=== PATIENT | male | born 1955 | race Caucasian/White ===

== ENCOUNTER 2021-05-01 17:34 | Emergency (ER) | payer OTHER ==
[2021-05-01 18:27] VITALS: RESP 18
--- NOTE | 2021-05-01 19:16 | XR ---
Result: History: Pain. Comparison: Pain status post fall. Technique: 3 views of the left knee. Findings: No acute fracture or dislocation is seen. The visualized osseous structures are in anatomic alignmen t. 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 There is small knee joint effusion. Impression: Small knee joint effusion without acute osseous abnormality.
[2021-05-01 19:35] VITALS: BP 150/85; PULSE 95; TEMP 98
[2021-05-01] MEDS ORDERED: KETOROLAC 15 MG/ML 1 ML VIAL IM STA (19:35)
[2021-05-01] MEDS ORDERED: ACETAMINOPHEN TAB 500 MG TAB PO STA (19:35)
--- NOTE | 2021-05-01 19:38 | ED ---
Lower Extremity Injury HPI - General Source: patient, family Mode of arrival: wheelchair Limitations: physical limitation <CarlNicholas - Last Filed: 05/01/21 19:50> <Pauline Prieto - Last Filed: 05/02/21 00:33> - General Chief Complaint: Extremity Injury, Lower Stated Complaint: Fall, knee injury Time Seen by Provider: 05/01/21 19:02 - History of Present Illness Initial Comments: This is a pleasant 65-year-old male who presents to the emergency department complaining of left knee pain. Patient states he slipped on ice and his foot went behind him and he fell backwards twisting his left knee. He is complaining of pain to the anterior medial aspect of the left knee with no other complaints. There is no head or neck injury. Patient had a blood thinners. Patient denies any chest pain or shortness of breath. No abdominal pain. No nausea or vomiting. No numbness or tingling. Patient is able to ambulate without antalgia. Pain does not radiate. It alleviated by rest. Exacerbated by palpation and ambulation. (Nicholas Henry) - Related Data Previous Rx's Medication Instructions Recorded Ibuprofen [Motrin] 600 mg PO Q8HR PRN #30 tab 05/01/21 Allergies Allergy/AdvReac Type Severity Reaction Status Date / Time No Known Allergies Allergy Verified 05/01/21 19:33 Review of Systems ROS Other: All systems not noted in ROS Statement are negative. <CarlNicholas - Last Filed: 05/01/21 19:50> ROS Other: All systems not noted in ROS Statement are negative. <Pauline Prieto - Last Filed: 05/02/21 00:33> ROS Statement: Those systems with pertinent positive or pertinent negative responses have been documented in the HPI. Past Medical History Past Medical History: No Reported History History of Any Multi-Drug Resistant Organisms: None Reported Past Surgical History: No Surgical Hx Reported Past Psychological History: No Psychological Hx Reported Smoking Status: Never smoker Past Alcohol Use History: None Reported Past Drug Use History: None Reported <CarlNicholas - Last Filed: 05/01/21 19:50> General Exam Limitations: no limitations, physical limitation General appearance: alert, in no apparent distress Head exam: Present: atraumatic, normocephalic, normal inspection Eye exam: Present: normal appearance, EOMI ENT exam: Present: normal exam Neck exam: Present: normal inspection. Absent: tenderness, meningismus, lymphadenopathy Respiratory exam: Present: normal lung sounds bilaterally. Absent: respiratory distress, wheezes, rales, rhonchi, stridor Cardiovascular Exam: Present: regular rate, normal rhythm, normal heart sounds. Absent: systolic murmur, diastolic murmur, rubs, gallop, clicks GI/Abdominal exam: Present: soft. Absent: tenderness Extremities exam: Present: tenderness, normal capillary refill, joint swelling, other (Patient has edema noted to the left knee. No break in skin integrity. No bony pathology. Ligament are stable as tested with anterior posterior drawer, varus and valgus stress, and Brittany's test. No discernible Sue's test. Distal sensation intact. Pedal pulses 2+ out of 4. Capillary refi). Absent: full ROM, pedal edema, calf tenderness Back exam: Present: normal inspection, full ROM. Absent: tenderness Neurological exam: Present: alert, oriented X3, CN II-XII intact Psychiatric exam: Present: normal affect, normal mood Skin exam: Present: warm, dry, intact, normal color. Absent: rash <Nicholas Henry - Last Filed: 05/01/21 19:50> Course Vital Signs 05/01/21 18:24 Temperature 98 F Pulse Rate 95 Respiratory 18 Rate Blood Pressure 150/85 O2 Sat by Pulse 97 Oximetry Medical Decision Making <Nicholas Henry - Last Filed: 05/01/21 19:50> <Pauline Prieto - Last Filed: 05/02/21 00:33> - Medical Decision Making Patient presents with isolated injury to left knee. Consistent with left knee sprain. No evidence of fracture on x-ray. Discussed the possibility of occult fracture. Discussed possibility of internal derangement. Patient will be placed in a knee immobilizer and given follow-up with orthopedics. We'll treat with anti-inflammatory medication. Patient has no history of liver or kidney problems. Estratest or bleeding. Patient given follow-up with Dr. Sierra. Patient also has crutches if he does not tolerate a knee immobilizer. Vision given Toradol and acetaminophen here prior to discharge. Discussed rice therapy. Patient was told to return to the ER for any signs or symptoms worsen. Told to return immediately if any other problems arise. All questions answered. Treatment plan discussed. Patient in agreement (Nicholas Henry) I was available for consultation in the emergency department. The history and physical exam were done by the midlevel provider. I was consulted for this patients care. I reviewed the case with the midlevel provider and based on their presentation of the patient, I agree with the assessment, medical decision making and plan of care as documented. (Pauline Prieto) Disposition Is patient prescribed a controlled substance at d/c from ED?: No <CarlNicholas - Last Filed: 05/01/21 19:50> <Pauline Prieto - Last Filed: 05/02/21 00:33> Clinical Impression: Left knee sprain Disposition: HOME SELF-CARE Condition: Stable Instructions (If sedation given, give patient instructions): Knee Sprain (ED), Knee Immobilizer (ED) Additional Instructions: Call for follow-up appointment with the orthopedic physician as discussed. Return to the ER immediately if any symptoms worsen, new symptoms arise, or any other problems develop. Use a knee immobilizer or crutches until follow-up with the orthopedic physician. Prescriptions: Ibuprofen [Motrin] 600 mg PO Q8HR PRN #30 tab PRN Reason: Pain Referrals: Genaro Sierra MD [STAFF PHYSICIAN] - 05/05/21
== END 2021-05-01 20:42 | disposition home or self-care (01) ==
LOC: EC 17:34
DX: S83.92XA Sprain of unspecified site of left knee, initial encounter (principal); W01.0XXA Fall on same level from slipping, tripping and stumbling without subsequent striking against object, initial encounter; X50.1XXA Overexertion from prolonged static or awkward postures, initial encounter
CPT/HCPCS: 73562; 99284; 96372; L1830; J1885

== ENCOUNTER 2021-10-03 11:02 | Inpatient (IN) | payer OTHER ==
--- NOTE | 2021-10-03 11:40 | ED ---
General Adult HPI - General Chief complaint: Chest Pain Stated complaint: Chest pain Time Seen by Provider: 10/03/21 11:12 Source: patient, EMS Mode of arrival: EMS Limitations: no limitations - History of Present Illness Initial comments: Dictation was produced using [employer] dictation software. please excuse any grammatical, word or spelling errors. Chief Complaint: 65-year-old male presents with chest pain and back pain History of Present Illness: To a 5-year-old male who states that at approximately 8 AM he was feeding the cows and shoveling when all of a sudden he began to experiencing a dull chest pain. Patient states pain radiated to his back. After several hours he decided come to the emergency room. States he does not notice any pain in his chest and only his back. Patient denies any medical problems. Patient has no tobacco history. Patient states that now he has a dull ache in his thoracic back. Patient complains of associated shortness of breath. No associated diaphoresis. He states it is not the worst pain in his life. He states that his pain came on insidiously. Does complain of some mild paresthesias to his left arm however he believes that secondary to the blood pressure cuff on his left upper extremity. He has a history of blood clot. Several weeks ago they took a road trip to the [facility]. Patient has no lower extremity symptoms. The ROS documented in this emergency department record has been reviewed and confirmed by me. Those systems with pertinent positive or negative responses have been documented in the HPI. All other systems are other negative and/or noncontributory. PHYSICAL EXAM: General Impression: Alert and oriented x3, not in acute distress HEENT: Normocephalic atraumatic, extra-ocular movements intact, pupils equal and reactive to light bilaterally, mucous membranes moist. Cardiovascular: Heart regular rate and rhythm Chest: Able to complete full sentences, no retractions, no tachypnea, lungs clear to auscultation Abdomen: abdomen soft, non-tender, non-distended, no organomegaly Musculoskeletal: Pulses present and equal in all extremities, no peripheral edema Motor: no focal deficits noted Neurological: CN II-XII grossly intact, no focal motor or sensory deficits noted Skin: Intact with no visualized rashes Psych: Normal affect and mood ED course: 65-year-old male presents to the emergency department for atypical chest pain w typical features. Vital signs upon arrival are within acceptable limits. EKG does not show any signs of ischemia or infarction. EKG interpretation: Ventricular rate 54, sinus bradycardia,. 183, QS 90, QTC 42 6. No SC prolongation, no QTC prolongation, no ST or T-wave changes noted. No old EKG for comparison Overall, this EKG is unremarkable Repeat EKG performed several minutes later shows no dynamic changes. Patient observed in the emergency department for approximately 3 hours. Reevaluated at bedside at 2:30 PM states that his pain is significantly improved. Patient I bedside appears to be well appearing and a symptomatically. Laboratory evaluation shows normal CBC, normal coag panel. D-dimer 0.29. Metabolic panel is negative. Troponin is 0.131. There was concern of aortic di ssection given that patient had back pain. Thoracic aorta CT shows no evidence of dissection but there is an aneurysm. Patient given aspirin 7 heparin for elevated troponin. Patient will be admitted to [facility] with consultation to cardiology. - Related Data Home Medications Medication Instructions Recorded Confirmed Omeprazole [PriLOSEC] 20 mg PO DAILY 10/03/21 10/03/21 Allergies Allergy/AdvReac Type Severity Reaction Status Date / Time No Known Allergies Allergy Verified 10/03/21 12:05 Review of Systems ROS Statement: Those systems with pertinent positive or pertinent negative responses have been documented in the HPI. ROS Other: All systems not noted in ROS Statement are negative. Past Medical History Past Medical History: GERD/Reflux History of Any Multi-Drug Resistant Organisms: None Reported Past Surgical History: No Surgical Hx Reported Past Psychological History: No Psychological Hx Reported Smoking Status: Never smoker Past Alcohol Use History: Occasional Past Drug Use History: None Reported General Exam Limitations: no limitations Course Vital Signs 10/03/21 10/03/21 10/03/21 11:04 12:11 13:01 Temperature 97.6 F Pulse Rate 54 L 70 75 Respiratory 18 18 18 Rate Blood Pressure 144/93 105/50 140/84 O2 Sat by Pulse 97 97 96 Oximetry Medical Decision Making - Lab Data Result diagrams: 10/03/21 11:40 10/03/21 11:40 Lab Results 10/03/21 10/03/21 10/03/21 Range/Units 11:40 11:40 11:40 WBC 6.3 (3.8-10.6) k/uL RBC 4.88 (4.30-5.90) m/uL Hgb 15.2 (13.0-17.5) gm/dL Hct 45.9 (39.0-53.0) % MCV 94.0 (80.0-100.0) fL MCH 31.1 (25.0-35.0) pg MCHC 33.1 (31.0-37.0) g/dL RDW 13.8 (11.5-15.5) % Plt Count 228 (150-450) k/uL MPV 7.7 Neutrophils % 51 % Lymphocytes % 34 % Monocytes % 7 % Eosinophils % 5 % Basophils % 1 % Neutrophils # 3.2 (1.3-7.7) k/uL Lymphocytes # 2.1 (1.0-4.8) k/uL Monocytes # 0.4 (0-1.0) k/uL Eosinophils # 0.3 (0-0.7) k/uL Basophils # 0.0 (0-0.2) k/uL PT 10.7 (9.0-12.0) sec INR 1.0 (<1.2) APTT 25.0 (22.0-30.0) sec D-Dimer 0.29 (<0.60) mg/L FEU Sodium 136 L (137-145) mmol/L Potassium 4.3 (3.5-5.1) mmol/L Chloride 105 (98-107) mmol/L Carbon Dioxide 24 (22-30) mmol/L Anion Gap 7 mmol/L BUN 21 H (9-20) mg/dL Creatinine 0.86 (0.66-1.25) mg/dL Est GFR (CKD-EPI)AfAm >90 (>60 ml/min/1.73 sqM) Est GFR (CKD-EPI)NonAf >90 (>60 ml/min/1.73 sqM) Glucose 132 H (74-99) mg/dL Calcium 8.9 (8.4-10.2) mg/dL Magnesium 2.2 (1.6-2.3) mg/dL Total Bilirubin 0.7 (0.2-1.3) mg/dL AST 33 (17-59) U/L ALT 24 (4-49) U/L Alkaline Phosphatase 79 (38-126) U/L Troponin I (0.000-0.034) ng/mL NT-Pro-B Natriuret Pep pg/mL Total Protein 7.0 (6.3-8.2) g/dL Albumin 4.0 (3.5-5.0) g/dL 10/03/21 10/03/21 Range/Units 11:40 11:40 WBC (3.8-10.6) k/uL RBC (4.30-5.90) m/uL Hgb (13.0-17.5) gm/dL Hct (39.0-53.0) % MCV (80.0-100.0) fL MCH (25.0-35.0) pg MCHC (31.0-37.0) g/dL RDW (11.5-15.5) % Plt Count (150-450) k/uL MPV Neutrophils % % Lymphocytes % % Monocytes % % Eosinophils % % Basophils % % Neutrophils # (1.3-7.7) k/uL Lymphocytes # (1.0-4.8) k/uL Monocytes # (0-1.0) k/uL Eosinophils # (0-0.7) k/uL Basophils # (0-0.2) k/uL PT (9.0-12.0) sec INR (<1.2) APTT (22.0-30.0) sec D-Dimer (<0.60) mg/L FEU Sodium (137-145) mmol/L Potassium (3.5-5.1) mmol/L Chloride (98-107) mmol/L Carbon Dioxide (22-30) mmol/L Anion Gap mmol/L BUN (9-20) mg/dL Creatinine (0.66-1.25) mg/dL Est GFR (CKD-EPI)AfAm (>60 ml/min/1.73 sqM) Est GFR (CKD-EPI)NonAf (>60 ml/min/1.73 sqM) Glucose (74-99) mg/dL Calcium (8.4-10.2) mg/dL Magnesium (1.6-2.3) mg/dL Total Bilirubin (0.2-1.3) mg/dL AST (17-59) U/L ALT (4-49) U/L Alkaline Phosphatase (38-126) U/L Troponin I 0.131 H* (0.000-0.034) ng/mL NT-Pro-B Natriuret Pep 81 pg/mL Total Protein (6.3-8.2) g/dL Albumin (3.5-5.0) g/dL Critical Care Time Critical Care Time: Yes Total Critical Care Time: 33 Disposition Clinical Impression: ACS (acute coronary syndrome) Disposition: ADMITTED IP TO THIS [facility] Condition: Serious Referrals: Shaylee Watkins MD [Primary Care Provider] - 1-2 days Decision Time: 14:27
[2021-10-03 11:56] LABS: Basophils % (A) 1 %; Eosinophils # (A) 0.3 k/uL (0-0.7); Eosinophils % (A) 5 %; HCT 45.9 % (39.0-53.0); HGB 15.2 gm/dL (13.0-17.5); Lymphocytes # (A) 2.1 k/uL (1.0-4.8); Lymphocytes % (A) 34 %; MCH 31.1 pg (25.0-35.0); MCHC 33.1 g/dL (31.0-37.0); Mean Platelet Volume 7.7; Monocytes # (A) 0.4 k/uL (0-1.0); Monocytes % (A) 7 %; Neutrophils # (A) 3.2 k/uL (1.3-7.7); Neutrophils % (A) 51 %; Platelet Count 228 k/uL (150-450); RBC 4.88 m/uL (4.30-5.90); RDW 13.8 % (11.5-15.5); WBC 6.3 k/uL (3.8-10.6)
[2021-10-03 12:12] LABS: Prothrombin Time 10.7 sec (9.0-12.0)
--- NOTE | 2021-10-03 12:13 | XR ---
EXAMINATION TYPE: XR chest 1V portable DATE OF EXAM: 10/03/2021 COMPARISON: 07/30/2021 INDICATION: TECHNIQUE: Single frontal view of the chest is obtained. FINDINGS: The heart size is normal. The pulmonary vasculature is normal. The lungs are clear. IMPRESSION: 1. No acute pulmonary process.
[2021-10-03 12:30] LABS: ALT 24 U/L (4-49); AST 33 U/L (17-59); African American GFR (CKD) >90 (>60 ml/min/1.73 sqM); Alkaline Phosphatase 79 U/L (38-126); Anion Gap 7 mmol/L; Blood Urea Nitrogen 21 mg/dL (9-20); Calcium 8.9 mg/dL (8.4-10.2); Carbon Dioxide 24 mmol/L (22-30); Chloride 105 mmol/L (98-107); Glucose 132 mg/dL (74-99); Magnesium 2.2 mg/dL (1.6-2.3); Non-African American GFR(CKD) >90 (>60 ml/min/1.73 sqM); Potassium 4.3 mmol/L (3.5-5.1); Sodium 136 mmol/L (137-145); Total Bilirubin 0.7 mg/dL (0.2-1.3)
--- NOTE | 2021-10-03 14:19 | CT ---
CTA of the chest abdomen and pelvis. HISTORY: Suspected aortic dissection. Chest pain. COMPARISON: None. TECHNIQUE: Multiple axial images were obtained through the chest, abdomen and pelvis following uneven tful administration of nonionic IV contrast material. Exam was performed according to CTA protocol. 3 -D postprocessing was performed. Coronal and sagittal reconstructions were generated and reviewed. The ascending thoracic aorta is diffusely aneurysmal measuring 4.6 cm in greatest dimension but there is no evidence of a dissection. There is no aneurysm of the descending thoracic aorta or abdominal a mark and no evidence of dissection. There is no retroperitoneal adenopathy or hemorrhage. The origins of the mesenteric arteries are widely patent as are the renal artery origins. The kidneys are perfused symmetrically and promptly and there is no solid renal mass or hydronephrosis. The bowel loops are normal in caliber and there is no evidence of obstruction. No inflammatory change s are identified in the mesentery or bowel wall. There is no free intraperitoneal air or fluid. The gallbladder is normal. The liver, pancreas, spleen and adrenal glands are normal without gross enlargement or focal abnormal ity. There is no pelvic mass or adenopathy. The osseous structures are intact. There is a 7 mm nodule in the right upper lobe anteriorly. A 6 mm densely calcified nodule associated with the right major fissure and 4.4 mm nodule associated with the left major fissure. . IMPRESSION: 1. No evidence of aortic dissection. There is aneurysmal dilatation of the ascending thoracic aorta a s described above. Renal artery origins and mesenteric artery origins are normal is no abnormality of the bowel or kidneys. 2. Pulmonary nodules as described above. Follow-up CT chest is recommended in 4-6 months.
[2021-10-03] MEDS ORDERED: NITROGLYCERIN SL TABS 0.4 MG TAB SUBLINGUAL PRN (14:23)
[2021-10-03] MEDS ORDERED: HEPARIN SODIUM 1,000 UN/ML (10ML VL) IV ONE (14:23)
[2021-10-03] MEDS ORDERED: ASPIRIN 81 MG PO STA (14:23)
[2021-10-03] MEDS ORDERED: HEPARIN SOD,PORK IN 0.45% NACL 25,000 UNIT in 0.45% NACL 1 250ML.BAG IV SCH (14:30)
--- NOTE | 2021-10-03 18:07 | P.HPIM ---
History of Present Illness H&P Date: 10/03/21 Chief Complaint: Chest pain 65-year-old male who states that at approximately 8 AM he was feeding the cows and shoveling when all of a sudden he began to experiencing a dull chest pain. Patient states pain radiated to his back. After several hours he decided come to the emergency room. States he does not notice any pain in his chest and only his back. Patient denies any medical problems. Patient has no tobacco history. Patient states that now he has a dull ache in his thoracic back. Patient complains of associated shortness of breath. No associated diaphoresis. He states it is not the worst pain in his life. He states that his pain came on insidiously. Does complain of some mild paresthesias to his left arm however he believes that secondary to the blood pressure cuff on his left upper extremity. He has a history of blood clot. Several weeks ago they took a road trip to the [facility]. Patient has no lower extremity symptoms. Patient observed in the emergency department for approximately 3 hours. Reevaluated at bedside at 2:30 PM states that his pain is significantly improved. Patient I bedside appears to be well appearing and a symptomatically. Laboratory evaluation shows normal CBC, normal coag panel. D-dimer 0.29. Metabolic panel is negative. Troponin is 0.131. There was concern of aortic dissection given that patient had back pain. Thoracic aorta CT shows no evidence of dissection but there is an aneurysm. Patient given aspirin 7 heparin for elevated troponin. Patient will be admitted to [facility] with consultation to cardiology. Review of Systems REVIEW OF SYSTEMS: CONSTITUTIONAL: No fever, no malaise, no fatigue. HEENT: No recent visual problems or hearing problems. Denied any sore throat. CARDIOVASCULAR: No chest pain, orthopnea, PND, no palpitations, no syncope. PULMONARY: No shortness of breath, no cough, no hemoptysis. GASTROINTESTINAL: No diarrhea, no nausea, no vomiting, no abdominal pain. NEUROLOGICAL: No headaches, no weakness, no numbness. HEMATOLOGICAL: Denies any bleeding or petechiae. GENITOURINARY: Denies any burning micturition, frequency, or urgency. MUSCULOSKELETAL/RHEUMATOLOGICAL: Denies any joint pain, swelling, or any muscle pain. ENDOCRINE: Denies any polyuria or polydipsia. The rest of the 14-point review of systems is negative. Past Medical History Past Medical History: GERD/Reflux History of Any Multi-Drug Resistant Organisms: None Reported Past Surgical History: No Surgical Hx Reported Past Psychological History: No Psychological Hx Reported Smoking Status: Never smoker Past Alcohol Use History: Occasional Past Drug Use History: None Reported Medications and Allergies Home Medications Medication Instructions Recorded Confirmed Type Omeprazole [PriLOSEC] 20 mg PO DAILY 10/03/21 10/03/21 History Allergies Allergy/AdvReac Type Severity Reaction Status Date / Time No Known Allergies Allergy Verified 10/03/21 12:05 Physical Exam Vitals: Vital Signs Temp Pulse Resp BP Pulse Ox 10/03/21 13:01 75 18 140/84 96 10/03/21 12:11 70 18 105/50 97 10/03/21 11:04 97.6 F 54 L 18 144/93 97 Intake and Output 10/02/21 10/03/21 10/03/21 22:59 06:59 14:59 Other: Weight 86.183 kg General Impression: Alert and oriented x3, not in acute distress HEENT: Normocephalic atraumatic, extra-ocular movements intact, pupils equal and reactive to light bilaterally, mucous membranes moist. Cardiovascular: Heart regular rate and rhythm Chest: Able to complete full sentences, no retractions, no tachypnea, lungs clear to auscultation Abdomen: abdomen soft, non-tender, non-distended, no organomegaly Musculoskeletal: Pulses present and equal in all extremities, no peripheral edema Motor: no focal deficits noted Neurological: CN II-XII grossly intact, no focal motor or sensory deficits noted Skin: Intact with no visualized rashes Psych: Normal affect and mood Results CBC & Chem 7: 10/03/21 11:40 10/03/21 11:40 Labs: Abnormal Lab Results - Last 24 Hours (Table) 10/03/21 10/03/21 Range/Units 11:40 11:40 Sodium 136 L (137-145) mmol/L BUN 21 H (9-20) mg/dL Glucose 132 H (74-99) mg/dL Troponin I 0.131 H* (0.000-0.034) ng/mL Assessment and Plan Assessment: 1. Chest pain/NSTEMI - Troponin is elevated at 0.131; we will admit patient to telemetry and monitor EKG and trend troponin; patient will be placed on IV heparin per protocol; consult cardiology for further recommendations 2. Mild renal injury; BUN is elevated at 21; patient is encouraged to increase oral fluid intake; diagnosed, daily weights, renal function and electrolytes 3. Gastroesophageal reflux disease; continue with PPI according to her home do neris DVT prophylaxis; SCDs/IV heparin CODE STATUS; full code
[2021-10-03] MEDS: NITROGLYCERIN OINT 1 INCH/GM PACKET TOPICAL SCH ×2 (18:40→23:43)
[2021-10-03] MEDS: ATORVASTATIN 40 MG TAB PO SCH (18:40)
[2021-10-03] MEDS: METOPROLOL TARTRATE 25 MG TAB PO SCH (21:30)
[2021-10-04] MEDS: PANTOPRAZOLE 40 MG TABLET PO SCH (06:34)
[2021-10-04] MEDS ORDERED: ATORVASTATIN 80 MG TAB PO STA (07:57)
[2021-10-04] MEDS ORDERED: ALPRAZolam 0.25 MG TAB PO PRN (07:57)
[2021-10-04] MEDS ORDERED: ASPIRIN 325 MG TAB PO STA (07:57)
[2021-10-04] MEDS ORDERED: ALPRAZolam 0.5 MG TAB PO PRN (07:57)
[2021-10-04] MEDS ORDERED: NITROGLYCERIN SL TABS 0.4 MG TAB SUBLINGUAL PRN ×2 (07:57→11:48)
[2021-10-04] MEDS ORDERED: ASPIRIN 325 MG TAB PO SCH (09:00)
[2021-10-04] MEDS: NITROGLYCERIN OINT 1 INCH/GM PACKET TOPICAL SCH (09:15)
[2021-10-04] MEDS: ATORVASTATIN 40 MG TAB PO SCH (09:15)
[2021-10-04] MEDS: ASPIRIN 81 MG PO SCH (09:15)
[2021-10-04] MEDS ORDERED: fentaNYL (PF) 50 MCG/ML 2 ML AMP ONE (10:01)
[2021-10-04] MEDS ORDERED: VERAPAMIL 2.5 MG/ML 2 ML AMP ONE (10:01)
[2021-10-04] MEDS ORDERED: HEPARIN SODIUM 1,000 UN/ML (10ML VL) ONE (10:01)
[2021-10-04] MEDS ORDERED: IV FLUID CONTINUATION 900 ML IV ONE (10:22)
[2021-10-04] MEDS ORDERED: LIDOCAINE 1% PF 10 MG/ML (5 ML AMP) SQ ONE (10:38)
[2021-10-04] MEDS ORDERED: VERAPAMIL SYRINGE (5 MG/10 ML) INTRAARTER ONE (10:40)
[2021-10-04] MEDS ORDERED: fentaNYL (PF) 50 MCG/ML 2 ML AMP IV ONE (10:40)
[2021-10-04] MEDS: HEPARIN SODIUM 1,000 UN/ML (10ML VL) IV ONE ×3 (10:46→11:50)
[2021-10-04] MEDS ORDERED: PRASUGREL 10 MG TAB ONE (10:57)
[2021-10-04] MEDS ORDERED: PRASUGREL 10 MG TAB PO ONE (10:59)
[2021-10-04] MEDS ORDERED: IOPAMIDOL-370 125ML BTL INJ ONE (11:00)
--- NOTE | 2021-10-04 11:00 | CA ---
Transthoracic Echo Report Name: Damir Munguia Age: 65 Gender: M : 1955 Exam Date: 10/04/2021 07:51 Exam Location: [facility] Ht (in): 68 Wt (lb): 184 Ordering Physician: Sriram Nguyen MD ([id number]) Attending/Referring Phys: Health [employer] Fabiola Mccormick RDCS Procedure CPT: Indications: TN Cardiac Hx: Technical Quality: Good Contrast 1: Total Dose (mL): Contrast 2: Total Dose (mL): MEASUREMENTS (Male / Female) Normal Values 2D ECHO LV Diastolic Diameter PLAX 3.7 cm 4.2 - 5.9 / 3.9 - 5.3 cm LV Systolic Diameter PLAX 2.3 cm IVS Diastolic Thickness 1.3 cm 0.6 - 1.0 / 0.6 - 0.9 cm LVPW Diastolic Thickness 1.2 cm 0.6 - 1.0 / 0.6 - 0.9 cm LV Relative Wall Thickness 0.7 RV Internal Dim ED PLAX 3.5 cm LA Systolic Diameter LX 3.0 cm 3.0 - 4.0 / 2.7 - 3.8 cm LA Volume 48.3 cm??? 18 - 58 / 22 - 52 cm??? M-MODE Aortic Root Diameter MM 3.9 cm MV E Point Septal Separation 0.5 cm AV Cusp Separation MM 2.5 cm DOPPLER AV Peak Velocity 92.2 cm/s AV Peak Gradient 3.4 mmHg MV Area PHT 2.3 cm??? Mitral E Point Velocity 58.2 cm/s Mitral A Point Velocity 88.2 cm/s Mitral E to A Ratio 0.7 MV Deceleration Time 328.1 ms TR Peak Velocity 215.5 cm/s TR Peak Gradient 18.6 mmHg Right Ventricular Systolic Press 23.6 mmHg FINDINGS Left Ventricle Left ventricular ejection fraction is estimated at 55-60 %. Left ventricular cavity size normal. Mild concentric left ventricular hypertrophy. Right Ventricle Mild right ventricular dilatation. Right ventricular systolic pressure within normal limits. Right Atrium Normal right atrial size. Left Atrium Normal left atrial size. No evidence for an atrial septal defect. Mitral Valve Structurally normal mitral valve. No mitral stenosis, regurgitation or prolapse. Aortic Valve Trileaflet aortic valve. Mild aortic regurgitation. Tricuspid Valve Mild tricuspid regurgitation. Pulmonic Valve Trace pulmonic regurgitation. Pericardium Normal pericardium. No pericardial effusion. Aorta Mild aortic dilatation at the level of the sinuses of valsalva (root). CONCLUSIONS Normal LV size and systolic function Previewed by: Dr. Castillo Moe MD (Electronically Signed) Final Date: 04 October 2021 10:59
[2021-10-04] MEDS: METOPROLOL TARTRATE 25 MG TAB PO SCH ×2 (11:01→21:01)
--- NOTE | 2021-10-04 11:07 | P.CRDCN ---
History of Present Illness Consult date: 10/04/21 Consult reason: non-Q-wave LA History of present illness: The patient is a 65-year-old male with past medical history of borderline hypertension, who presented to the hospital with new onset of chest discomfort. 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 He states once EMS arrived and he was given nitroglycerin the pain did improve. He states he does have a family history of coronary artery disease as his brother had a heart attack around the age of 50. DIAGNOSTICS: EKG shows sinus mechanism without any ST or T-wave abnormalities Chest x-ray shows no acute cardiopulmonary disease. Computed tomography scan of the chest shows no evidence of aortic dissection. 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 Lab data: WBC 6.3, hemoglobin 15.2, hematocrit 45.9, platelet 228, d-dimer 0.29, sodium 136, potassium 4.3, BUN 21, creatinine 0.86, AST 33, ALT 24, proBNP 81, troponin 0.13, 14.7, 19.5 Echocardiogram reveals normal LV function with mild LVH PAST MEDICAL HISTORY: Acid reflux, borderline hypertension, family history of CAD REVIEW OF SYSTEMS: No fever or chills. No cough or expectoration. No diaphoresis. Patient denies headache, dizziness, blurred vision, double vision. Patient denies any stomach discomfort. No nausea, vomiting. No hematochezia. No hematemesis. Denies any black stools or blood in his stools. Denies dysuria or hematuria. No muscle weakness or numbness. No current chest pain. No current shortness of breath. No palpitations. PHYSICAL EXAMINATION: This is a 65-year-old male in no apparent distress at the time of my examination. HEENT: Head is atraumatic, normocephalic. Pupils are equal, round. Sclerae anicteric. Conjunctivae are clear. Mucous membranes of the mouth are moist. Neck is supple. There is no jugular venous distention. No carotid bruit is heard. CHEST EXAMINATION: Lungs are clear to auscultation. No chest wall tenderness is noted on palpation or with deep breathing. HEART EXAMINATION: Heart regular rate and rhythm. S1, S2 heard. No murmurs, gallops or rub. ABDOMEN: Soft, nontender. Bowel sounds are heard. No organomegaly noted. EXTREMITIES: 2+ peripheral pulses with no evidence of peripheral edema and no calf tenderness noted. NEUROLOGIC EXAMINATION: Patient is awake, alert and oriented x3. FINAL ASSESSMENT AND PLAN: Non-ST elevated myocardial infarction, troponin elevation consistent with acute LA Family history of coronary artery disease Nonsmoker Borderline hypertension PLAN: Discussed coronary angiogram in detail with both the patient and his . Plan for later on this morning to assess for coronary artery disease. Continue aspirin and statin Further recommendations. Based on clinical course I am dictating on behalf of Dr Castillo Moe's history/physical and assessment/plan. Past Medical History Past Medical History: GERD/Reflux History of Any Multi-Drug Resistant Organisms: None Reported Past Surgical History: No Surgical Hx Reported Past Psychological History: No Psychological Hx Reported Smoking Status: Never smoker Past Alcohol Use History: Occasional Past Drug Use History: None Reported - Past Family History Brother(s) Family Medical History: Myocardial Infarction (LA) Additional Family Medical History / Comment(s): in 40's Father Family Medical History: Coronary Artery Disease (CAD) Additional Family Medical History / Comment(s): cABG in 70's Medications and Allergies Home Medications Medication Instructions Recorded Confirmed Type Omeprazole [PriLOSEC] 20 mg PO DAILY 10/03/21 10/03/21 History Allergies Allergy/AdvReac Type Severity Reaction Status Date / Time No Known Allergies Allergy Verified 10/03/21 12:05 Physical Exam Vitals: Vital Signs Temp Pulse Pulse Resp BP BP BP 10/04/21 04:00 98.2 F 61 18 109/67 10/04/21 02:00 86 18 10/04/21 00:00 97.9 F 86 18 131/74 10/03/21 20:00 67 16 10/03/21 19:55 97.9 F 67 16 155/89 10/03/21 16:00 97.4 F L 65 15 151/88 10/03/21 15:18 98.3 F 63 18 171/100 10/03/21 15:00 60 16 151/99 10/03/21 13:01 75 18 140/84 10/03/21 12:11 70 18 105/50 10/03/21 11:04 97.6 F 54 L 18 144/93 Pulse Ox 10/04/21 04:00 95 10/04/21 02:00 10/04/21 00:00 95 10/03/21 20:00 10/03/21 19:55 97 10/03/21 16:00 98 10/03/21 15:18 98 10/03/21 15:00 99 10/03/21 13:01 96 10/03/21 12:11 97 10/03/21 11:04 97 Intake and Output 10/03/21 10/04/21 10/04/21 22:59 06:59 14:59 Other: Voiding Method Toilet Toilet Urinal Urinal # Voids 2 0 Weight 86.183 kg 83.6 kg Results 10/03/21 11:40 10/03/21 11:40 Cardiac Enzymes 10/03/21 10/03/21 10/03/21 Range/Units 11:40 11:40 16:10 AST 33 (17-59) U/L Troponin I 0.131 H* 14.700 H* (0.000-0.034) ng/mL 10/03/21 Range/Units 19:33 AST (17-59) U/L Troponin I 19.500 H* (0.000-0.034) ng/mL Coagulation 10/03/21 10/03/21 Range/Units 11:40 21:26 PT 10.7 (9.0-12.0) sec APTT 25.0 49.4 H (22.0-30.0) sec CBC 10/03/21 Range/Units 11:40 WBC 6.3 (3.8-10.6) k/uL RBC 4.88 (4.30-5.90) m/uL Hgb 15.2 (13.0-17.5) gm/dL Hct 45.9 (39.0-53.0) % Plt Count 228 (150-450) k/uL Comprehensive Metabolic Panel 10/03/21 Range/Units 11:40 Sodium 136 L (137-145) mmol/L Potassium 4.3 (3.5-5.1) mmol/L Chloride 105 (98-107) mmol/L Carbon Dioxide 24 (22-30) mmol/L BUN 21 H (9-20) mg/dL Creatinine 0.86 (0.66-1.25) mg/dL Glucose 132 H (74-99) mg/dL Calcium 8.9 (8.4-10.2) mg/dL AST 33 (17-59) U/L ALT 24 (4-49) U/L Alkaline Phosphatase 79 (38-126) U/L Total Protein 7.0 (6.3-8.2) g/dL Albumin 4.0 (3.5-5.0) g/dL Current Medications Generic Name Dose Route Start Last Admin Trade Name Freq PRN Reason Stop Dose Admin Aspirin 81 mg 10/04/21 09:00 Aspirin 81 Mg PO DAILY [facility] Atorvastatin Calcium 40 mg 10/03/21 18:30 10/03/21 18:40 Atorvastatin 40 Mg Tab PO 40 mg DAILY [facility] Administration Heparin Sodium/Sodium Chloride 250 mls @ 10 mls/hr 10/03/21 14:30 10/03/21 14:47 25,000 unit/ Sodium Chloride IV 11.603 units/kg/hr .Q24H MARYANN 10 mls/hr Administration Protocol 11.603 UNITS/KG/HR Metoprolol Tartrate 25 mg 10/03/21 21:00 10/03/21 21:30 Metoprolol Tartrate 25 Mg Tab PO 25 mg BID [facility] Administration Nitroglycerin 0.4 mg 10/03/21 14:23 Nitroglycerin Sl Tabs 0.4 Mg Tab SUBLINGUAL Q5M PRN Chest Pain Nitroglycerin 1 inch 10/03/21 18:30 10/03/21 23:43 Nitroglycerin Oint 1 Inch/Gm Packet TOPICAL 1 inch Q8HR [facility] Administration Pantoprazole Sodium 40 mg 10/04/21 07:30 10/04/21 06:34 Pantoprazole 40 Mg Tablet PO 40 mg [id number] [facility] Administration Intake and Output 10/03/21 10/04/21 10/04/21 22:59 06:59 14:59 Other: Voiding Method Toilet Toilet Urinal Urinal # Voids 2 0 Weight 86.183 kg 83.6 kg 10/03/21 11:40 10/03/21 11:40
[2021-10-04 11:10] LABS: African American GFR (CKD) >90 (>60 ml/min/1.73 sqM); Anion Gap 8 mmol/L; Blood Urea Nitrogen 14 mg/dL (9-20); Calcium 8.6 mg/dL (8.4-10.2); Carbon Dioxide 27 mmol/L (22-30); Chloride 102 mmol/L (98-107); Glucose 107 mg/dL (74-99); Non-African American GFR(CKD) >90 (>60 ml/min/1.73 sqM); Potassium 4.9 mmol/L (3.5-5.1); Sodium 137 mmol/L (137-145)
[2021-10-04] MEDS ORDERED: NITROGLYCERIN 1000MCG/10ML SYRINGE INTRACORON ONE (11:11)
[2021-10-04] MEDS ORDERED: IOPAMIDOL-370 100ML BTL INJ ONE ×2 (11:27→11:44)
[2021-10-04] MEDS ORDERED: MIDAZOLAM 2 MG/2 ML VIAL IV ONE (11:27)
[2021-10-04] MEDS ORDERED: RX INFO: IV CONTRAST WAS GIVEN 1 EACH MISC MISCELLANE PRN (11:48)
[2021-10-04] MEDS ORDERED: ATROPINE SULFATE 0.1 MG/ML 10ML SYRINGE IV PRN (11:48)
[2021-10-04] MEDS ORDERED: MAG HYDROX/AL HYDROX/SIMETH 30 ML CUP PO PRN (11:48)
[2021-10-04] MEDS ORDERED: ZOLPIDEM 5 MG TAB PO PRN (11:48)
[2021-10-04] MEDS ORDERED: SODIUM CHLORIDE 0.9% 1,000 ML in EMPTY BAG 1 BAG IV SCH (12:00)
--- NOTE | 2021-10-04 12:01 | P.CARDCATH ---
Date of Procedure: 10/04/21 Description of Procedure: Cardiac Catheterization: The patient is a 65-year-old male with no prior history of documented CAD who presented with chest discomfort and evidence of non-STEMI by enzymatic changes. Recommendations were made regarding cardiac catheterization, the risks and the complications were discussed with the patient who is in full understanding and agreement. 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 Using Xylocaine Anesthesia and Seldinger technique, a 6-Chadian sheath was introduced in the right radial artery . Subsequently, selective coronary angiography performed using a 5-Chadian 3.5 bend Ryan catheter. Multiple views of the coronary artery including hemiaxial views were obtained. The 5-Chadian Pigtail catheter was used to cross the aortic valve and LVEDP was calculated. Following that, catheter were removed. Of note, the patient received a total of 4500 units of intravenous heparin as well as intra-arterial verapamil. There was no immediate complications. Findings: Fluoroscopy revealed calcification of the LAD and the RCA Left main: This is a large size vessel, bifurcating into left circumflex and LAD, left main has no high-grade stenosis LAD: This is a size vessel, giving rise to 2 diagonal branch. At the takeoff of the second branch and the first septal laundry operator finishing there is an 85% stenosis in the LAD. The apical segment has a 95% stenosis. Left circumflex: This is a nondominant vessel, large in caliber, giving rise to 2 obtuse marginal branch. The first obtuse marginal branch is very proximal has a 99% stenosis, intimal disease in the left circumflex and the second obtuse marginal branch is noted. RCA: This is a large dominant vessel, bifurcating into PDA and PLV. The proximal RCA in the mid has a 40-50% plaque, the distal segment has a 70-80% stenosis prior to the bifurcation [Left] Ventriculogram: Was not performed Hemodynamics: There was no gradient across the aortic valve, LVEDP 16-20 mmHg Conclusion: 1. Calcified coronary arteries 2. Critical stenosis in OM 1, probable culprit lesion 3. Significant stenosis in the proximal LAD 4. Moderate to significant disease in the distal RCA Recommendations: I have recommended to proceed with angioplasty and stenting of the OM1 and LAD, the procedure as well as the risks and the complications were discussed with the patient was in full understanding and agreement.
--- NOTE | 2021-10-04 12:08 | P.CARDCATH ---
Date of Procedure: 10/04/21 Description of Procedure: PERCUTANEOUS TRANSLUMINAL CORONARY ANGIOPLASTY CLINICAL INFORMATION: The patient is a 65-year-old male who presented with non- STEMI, underwent cardiac catheterization and was found to have significant disease in the OM1 and LAD with moderate to significant disease in the distal R CA. Recommendations were made regarding angioplasty and stenting, the procedure as well as the risks and the complications were discussed with the patient who was in full understanding and agreement. PROCEDURE: A 6 [place] EBU 3.75 guiding catheter was introduced into the system. After cannulating the left main, attempts to advance a 0.014 BMW wire across the OM1 lesion was unsuccessful, at that time a 0.014 whisper J-wire with straight fine cross was advanced across the lesion and positioned distally. The wire was exchanged to a 0.014 BMW. Following that a 2.5 x 12 mm Treck was advanced and inflation at 8 allan were done. Following that a 2.75 x 18 mm aila point stent was deployed. It was dilated at 16 allan, following that a 3.0 x 8 mm alia point stent was deployed proximal to the first one and post dilated at 14 allan. The balloon was advanced into the first stent and one inflation was done.. After the last inflation, after appropriate wait, the balloon and the guidewire were withdrawn back into the guiding catheter. Images were obtained and repeated. Those images reveal stable successful stenting. The wire was introduced in the LAD and a 3.25 by 18 mm Xience alia point was advanced, deployed and postdilated at 16 allan. After removing the balloon a 4.0 x 12 mm NC Treck balloon was advanced and one inflation in the proximal segment at 10 allan was done. After withdrawing the wire images were obtained and repeated those images reveal stable successful stenting. At that point, the guiding catheter, the balloon, and guidewire were removed. The sheath was removed. Hemostasis was obtained with deployment to 50 are bent. There were no immediate complications. The patient was returned to the room in stable condition. Of note, the patient received and additional 2500 units of heparin as well as Effient loading dose. His ACT was monitored. The patient had chest discomfort and EKG changes with the stenting of the OM 1. RESULTS: Successful stenting of the OM1 with reduction of stenosis from 99 % to 0 %. Successful stenting of the proximal LAD with reduction of the stenosis from 85% to 0%. RECOMMENDATIONS: The patient will be continued on Effient and aspirin for 1 year without interruption in addition to aggressive coronary risk modification. He'll be reevaluated regarding the need to undergo revascularization of the RCA. The procedure as well as the recommendations were discussed with the patient and his family. They were in full understanding and agreement. Duration of sedation 70 minutes.
[2021-10-04 13:57] VITALS: BMI 28.0
[2021-10-04 16:28] LABS: Chol/HDL Ratio 4.39 Ratio; LDL Cholesterol,Calculated 126.4 mg/dL (0.0-131.0)
--- NOTE | 2021-10-04 17:00 | P.PN ---
Subjective Progress Note Date: 10/04/21 Principal diagnosis: Chest pain/NSTEMI PERCUTANEOUS TRANSLUMINAL CORONARY ANGIOPLASTY; Successful stenting of the OM1 with reduction of stenosis from 99 % to 0 % and proximal LAD with reduction of the stenosis from 85% to 0%. 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 Patient states pain radiated to his back. After several hours he decided come to the emergency room. States he does not notice any pain in his chest and only his back. Patient denies any medical problems. Patient has no tobacco history. Patient states that now he has a dull ache in his thoracic back. Patient complains of associated shortness of breath. No associated diaphoresis. He states it is not the worst pain in his life. He states that his pain came on insidiously. Does complain of some mild paresthesias to his left arm however he believes that secondary to the blood pressure cuff on his left upper extremity. He has a history of blood clot. Several weeks ago they took a road trip to the [facility]. Patient has no lower extremity symptoms. Patient observed in the emergency department for approximately 3 hours. Reevaluated at bedside at 2:30 PM states that his pain is significantly improved. Patient I bedside appears to be well appearing and a symptomatically. Laboratory evaluation shows normal CBC, normal coag panel. D-dimer 0.29. Metabolic panel is negative. Troponin is 0.131. There was concern of aortic dissection given that patient had back pain. Thoracic aorta CT shows no evidence of dissection but there is an aneurysm. Patient given aspirin 7 heparin for elevated troponin. Patient will be admitted with consultation to cardiology. Patient is status post cardiac catheterization with PTCA, successful stenting to the OM1 with reduction of stenosis from 99% down to 0%, and proximal LAD with reduction of stenosis from 85% to 0% Patient has sitting up in bed with family at bedside; denies any complaint of chest pain or shortness of breath at this time - Patient has been placed on dual antiplatelet therapy with aspirin and Effient to start tomorrow morning; currently on aspirin and IV heparin infusion; 25 mg twice a day and Lipitor at 80 mg daily Objective - Vital Signs Vital signs: Vital Signs Temp 97.9 F 10/04/21 08:32 Pulse 66 10/04/21 08:32 Resp 17 10/04/21 08:32 BP 120/80 10/04/21 08:32 Pulse Ox 96 10/04/21 08:32 FiO2 Intake & Output 10/03/21 10/04/21 10/04/21 18:59 06:59 18:59 Weight 86.183 kg 83.6 kg Other: Voiding Method Toilet Urinal # Voids 2 0 - Exam PHYSICAL EXAMINATION: GENERAL: The patient is alert and oriented x3, not in any acute distress. Well developed, well nourished. HEENT: Pupils are round and equally reacting to light. EOMI. No scleral icterus. No conjunctival pallor. Normocephalic, atraumatic. No pharyngeal erythema. No thyromegaly. CARDIOVASCULAR: S1 and S2 present. No murmurs, rubs, or gallops. PULMONARY: Chest is clear to auscultation, no wheezing or crackles. ABDOMEN: Soft, nontender, nondistended, normoactive bowel sounds. No palpable organomegaly. MUSCULOSKELETAL: No joint swelling or deformity. EXTREMITIES: No cyanosis, clubbing, or pedal edema. NEUROLOGICAL: Gross neurological examination did not reveal any focal deficits. SKIN: No rashes. - Labs CBC & Chem 7: 10/03/21 11:40 10/04/21 09:59 Labs: Abnormal Lab Results - Last 24 Hours (Table) 10/03/21 10/03/21 10/03/21 Range/Units 11:40 11:40 16:10 APTT (22.0-30.0) sec Sodium 136 L (137-145) mmol/L BUN 21 H (9-20) mg/dL Glucose 132 H (74-99) mg/dL Troponin I 0.131 H* 14.700 H* (0.000-0.034) ng/mL 10/03/21 10/03/21 Range/Units 19:33 21:26 APTT 49.4 H (22.0-30.0) sec Sodium (137-145) mmol/L BUN (9-20) mg/dL Glucose (74-99) mg/dL Troponin I 19.500 H* (0.000-0.034) ng/mL Assessment and Plan Assessment: 1. Chest pain/NSTEMI - Troponin is elevated at 0.131; we will admit patient to telemetry and monitor EKG and trend troponin; patient will be placed on IV heparin per protocol; consult cardiology for further recommendations 2. Mild renal injury; BUN is elevated at 21; patient is encouraged to increase oral fluid intake; diagnosed, daily weights, renal function and electrolytes 3. Gastroesophageal reflux disease; continue with PPI according to her home dosage DVT prophylaxis; SCDs/IV heparin CODE STATUS; full code
[2021-10-04] MEDS: lisinopriL 5 MG TAB PO SCH (21:01)
[2021-10-05] MEDS: PANTOPRAZOLE 40 MG TABLET PO SCH (06:25)
[2021-10-05] MEDS ORDERED: HEPARIN SODIUM,PORCINE 2,500 UNIT in SODIUM CHLORIDE 0.9% 250 ML IRRIGATION PRN (07:00)
[2021-10-05] MEDS ORDERED: HEPARIN SODIUM,PORCINE 10,000 UNIT in SODIUM CHLORIDE 0.9% 1,000 ML IRRIGATION PRN (07:00)
[2021-10-05] MEDS: ASPIRIN 81 MG PO SCH (08:16)
[2021-10-05] MEDS: ATORVASTATIN 40 MG TAB PO SCH (08:16)
[2021-10-05] MEDS: PRASUGREL 10 MG TAB PO SCH (08:16)
[2021-10-05] MEDS: lisinopriL 5 MG TAB PO SCH ×2 (08:17→12:16)
[2021-10-05] MEDS: METOPROLOL TARTRATE 25 MG TAB PO SCH ×2 (08:17→20:03)
[2021-10-05 08:32] LABS: African American GFR (CKD) >90 (>60 ml/min/1.73 sqM); Anion Gap 10 mmol/L; Blood Urea Nitrogen 15 mg/dL (9-20); Carbon Dioxide 23 mmol/L (22-30); Chloride 105 mmol/L (98-107); Glucose 113 mg/dL (74-99); Non-African American GFR(CKD) 88 (>60 ml/min/1.73 sqM); Potassium 4.5 mmol/L (3.5-5.1); Sodium 138 mmol/L (137-145)
--- NOTE | 2021-10-05 11:33 | P.PN ---
Subjective Progress Note Date: 10/05/21 The patient is 65-year-old male with no significant past medical history, who presented to the hospital with new onset of chest discomfort. He was subsequently diagnosed with a non-ST elevated myocardial infarction and underwent coronary angiogram yesterday with Dr. Nguyen. He was found to have an 85% lesion in the LAD, just distal to the second diagonal branch, as well as a 99% stenosis of his OM1. These 2 lesions were stented. He was also found to have a 40 for 50% in the proximal RCA as well as a 70-80% stenosis distally. The patient was interviewed and examined sitting up in his recliner this morning. He states he tolerated his procedure yesterday well. He has been up ambulating around his room without any symptoms. Dr. Moe recommends he ambulates around the unit and if he remains asymptomatic he may be discharged later today. Medications were reviewed in detail with the patient. He denies any chest pain or chest pressure. No dyspnea or orthopnea. No dizziness or lightheadedness. GENERAL: Well-appearing, well-nourished and in no acute distress. NECK: Supple without JVD or thyromegaly. LUNGS: Breath sounds clear to auscultation bilaterally. Respiration equal and unlabored. No wheezes, rales or rhonchi. HEART: Regular rate and rhythm without murmurs, rubs or gallops. S1 and S2 heard. EXTREMITIES: Normal range of motion, no edema. No clubbing or cyanosis. Peripheral pulses intact and strong. Right radial site is healed. +2 pulses. No bruising. VITALS: Blood pressure 90/61, pulse 80, respiratory rate 16, SpO2 98% on room air, afebrile TELEMETRY: Sinus mechanism overnight LABS: Sodium 138, potassium 4.5, BUN 15, creatinine 0.9 to, LDL 126, HDL 42, trigly cerides 90 IMPRESSION: Non-ST elevated myocardial infarction Coronary artery disease, stenting of the OM1 and LAD Borderline hypertension, tolerating medication regimen PLAN: Reduce lisinopril to 5 mg daily to avoid hypotension Continue beta ronnie Patient to ambulate around the cardiac unit. If asymptomatic, patient may be discharged later today. Patient to follow-up in office later this week with Dr. Moe I am dictating on behalf of Dr Castillo Moe's history/physical and assessment/p pj. Objective - Vital Signs Vital signs: Vital Signs Temp 98.0 F 10/05/21 04:00 Pulse 80 10/05/21 08:00 Resp 16 10/05/21 08:00 BP 90/61 10/05/21 08:00 Pulse Ox 98 10/05/21 08:00 FiO2 Intake & Output 10/04/21 10/05/21 10/05/21 18:59 06:59 18:59 Intake Total 1140 Balance 1140 Weight 83.6 kg 82.4 kg Intake: IV 300 Oral 840 Other: Voiding Method Toilet Toilet Urinal Urinal # Voids 3 3 2 # Bowel Movements 1 - Labs CBC & Chem 7: 10/03/21 11:40 10/05/21 07:50 Labs: Abnormal Lab Results - Last 24 Hours (Table) 10/04/21 10/04/21 Range/Units 09:59 09:59 APTT 44.3 H (22.0-30.0) sec Glucose 107 H (74-99) mg/dL
[2021-10-06 03:55] VITALS: PULSE 79; TEMP 97.9
[2021-10-06] MEDS: PANTOPRAZOLE 40 MG TABLET PO SCH (06:17)
[2021-10-06] MEDS: ATORVASTATIN 40 MG TAB PO SCH (08:10)
[2021-10-06] MEDS: ASPIRIN 81 MG PO SCH (08:10)
[2021-10-06] MEDS: PRASUGREL 10 MG TAB PO SCH (08:10)
[2021-10-06] MEDS: lisinopriL 5 MG TAB PO SCH (08:11)
[2021-10-06] MEDS: METOPROLOL TARTRATE 25 MG TAB PO SCH (08:11)
[2021-10-06 08:13] VITALS: BP 106/74; RESP 16
--- NOTE | 2021-10-06 10:22 | P.PN ---
Subjective Progress Note Date: 10/06/21 HISTORY OF PRESENT ILLNESS: This is a 65-year-old male who underwent cardiac catheterization on 10/04/[address] Nguyen with stenting to the proximal LAD and OM1. Patient examined this morning. Patient is sitting up in the chair. He denies chest pain or pressure. Denies shortness of breath. Echocardiogram completed revealing ejection fraction 55-60%. Patient's vital signs are stable. PHYSICAL EXAM: VITAL SIGNS: Reviewed. GENERAL: Well-developed in no acute distress. NECK: Supple. No JVD or thyromegaly LUNGS: Respirations even and unlabored. Lungs essentially clear to auscultation bilaterally. HEART: Regular rate and rhythm. S1 and S2 heard. EXTREMITIES: Normal range of motion. No clubbing or cyanosis. Peripheral pulses intact. No lower extremity edema. Right radial Site with pulse present. ASSESSMENT: Non-STEMI, s/p cardiac cath with PCI to LAD and OM1 PLAN: Continue current cardiac medications Continue dual antiplatelet therapy with aspirin and Effient Patient is stable for discharge home today from a cardiac standpoint He is to follow-up in the office next week with Dr. Moe Nurse practitioner note has been reviewed by physician. Signing provider agrees with the documented findings, assessment, and plan of care. Objective - Vital Signs Vital signs: Vital Signs Temp 97.9 F 10/06/21 03:54 Pulse 79 10/06/21 08:00 Resp 16 10/06/21 08:00 BP 106/74 10/06/21 08:00 Pulse Ox 96 10/06/21 08:00 FiO2 Intake & Output 10/05/21 10/06/21 10/06/21 18:59 06:59 18:59 Intake Total 1155 10 Balance 1155 10 Intake: IV 10 0.9 10 Oral 1155 Other: Voiding Method Toilet Toilet Urinal Urinal # Voids 3 2 - Labs CBC & Chem 7: 10/03/21 11:40 10/05/21 07:50
--- NOTE | 2021-10-06 11:01 | P.PN ---
Subjective Progress Note Date: 10/05/21 65-year-old male who states that at approximately 8 AM he was feeding the cows and shoveling when all of a sudden he began to experiencing a dull chest pain. Patient states pain radiated to his back. After several hours he decided come to the emergency room. States he does not notice any pain in his chest and only his back. Patient denies any medical problems. Patient has no tobacco history. Patient states that now he has a dull ache in his thoracic back. Patient complains of associated shortness of breath. No associated diaphoresis. He states it is not the worst pain in his life. He states that his pain came on insidiously. Does complain of some mild paresthesias to his left arm however he believes that secondary to the blood pressure cuff on his left upper extremity. He has a history of blood clot. Several weeks ago they took a road trip to the [facility] [place] [facility]. Patient has no lower extremity symptoms. Patient observed in the emergency department for approximately 3 hours. Ree valuated at bedside at 2:30 PM states that his pain is significantly improved. Patient I bedside appears to be well appearing and a symptomatically. Laboratory evaluation shows normal CBC, normal coag panel. D-dimer 0.29. Metabolic panel is negative. Troponin is 0.131. There was concern of aortic dissection given that patient had back pain. Thoracic aorta CT shows no evidence of dissection but there is an aneurysm. Patient given aspirin 7 heparin for elevated troponin. Patient will be admitted with consultation to cardiology. Patient is status post cardiac catheterization with PTCA, successful stenting to the OM1 with reduction of stenosis from 99% down to 0%, and proximal LAD with reduction of stenosis from 85% to 0% Patient has sitting up in bed with family at bedside; denies any complaint of chest pain or shortness of breath at this time - Patient has been placed on dual antiplatelet therapy with aspirin and Effient to start tomorrow morning; currently on aspirin and IV heparin infusion; 25 mg twice a day and Lipitor at 80 mg daily 10/05/2021 Patient is currently sitting which is comparable. Awake alert and oriented 3. No complaints of chest pain or shortness of breath. Patient is status post stent placement to OM1 and LAD. Patient is otherwise hypotensive today. Lisinopril dose reduced and continue on beta blockers. Denied any nausea vomiting or abdominal pain or diarrhea. Cardiology is on board. Current medications reviewed. Objective - Vital Signs Vital signs: Vital Signs Temp 98.0 F 10/05/21 04:00 Pulse 80 10/05/21 08:00 Resp 16 10/05/21 08:00 BP 90/61 10/05/21 08:00 Pulse Ox 98 10/05/21 08:00 FiO2 Intake & Output 10/04/21 10/05/21 10/05/21 18:59 06:59 18:59 Intake Total 1140 Balance 1140 Weight 83.6 kg 82.4 kg Intake: IV 300 Oral 840 Other: Voiding Method Toilet Toilet Urinal Urinal # Voids 3 3 2 # Bowel Movements 1 - Exam PHYSICAL EXAMINATION: GENERAL: The patient is alert and oriented x3, not in any acute distress. Well developed, well nourished. HEENT: Pupils are round and equally reacting to light. EOMI. No scleral icterus. No conjunctival pallor. Normocephalic, atraumatic. No pharyngeal erythema. No thyromegaly. CARDIOVASCULAR: S1 and S2 present. No murmurs, rubs, or gallops. PULMONARY: Chest is clear to auscultation, no wheezing or crackles. ABDOMEN: Soft, nontender, nondistended, normoactive bowel sounds. No palpable organomegaly. MUSCULOSKELETAL: No joint swelling or deformity. EXTREMITIES: No cyanosis, clubbing, or pedal edema. NEUROLOGICAL: Gross neurological examination did not reveal any focal deficits. SKIN: No rashes. - Labs CBC & Chem 7: 10/03/21 11:40 10/05/21 07:50 Labs: Abnormal Lab Results - Last 24 Hours (Table) 10/04/21 10/04/21 10/05/21 Range/Units 09:59 09:59 07:50 APTT 44.3 H (22.0-30.0) sec Glucose 107 H 113 H (74-99) mg/dL Assessment and Plan Assessment: 1. Acute non-ST elevated CO. - Patient is status post cardiac catheterization and stent placement to LAD and OM1 Continue with aspirin, prasugrel. beta blockers, statins and lisinopril dose reduced due to borderline hypotension. 2. Mild renal injury; BUN is elevated at 21; patient is encouraged to increase oral fluid intake; diagnosed, daily weights, renal function and electrolytes. Improving 3. Gastroesophageal reflux disease; continue with PPI according to her home dosage DVT prophylaxis; SCDs/IV heparin CODE STATUS; full code Time with Patient: Greater than 30
== END 2021-10-06 12:39 | disposition home or self-care (01) | DRG 247 ==
LOC: EC 11:02 → 3SCARD 14:23
PROVIDERS: ADMIT Internal Medicine; ATTEND Internal Medicine
PROC: B2111ZZ Fluoroscopy of Multiple Coronary Arteries using Low Osmolar Contrast (ICD-10-PCS; principal; 2021-10-04 09:54)
PROC: 027135Z Dilation of Coronary Artery, Two Arteries with Two Drug-eluting Intraluminal Devices, Percutaneous Approach (ICD-10-PCS; principal; 2021-10-04 09:54)
PROC: 4A023N7 Measurement of Cardiac Sampling and Pressure, Left Heart, Percutaneous Approach (ICD-10-PCS; principal; 2021-10-04 09:54)
DX: I21.4 Non-ST elevation (NSTEMI) myocardial infarction (principal); I25.10 Atherosclerotic heart disease of native coronary artery without angina pectoris; K21.9 Gastro-esophageal reflux disease without esophagitis; N28.9 Disorder of kidney and ureter, unspecified; R03.0 Elevated blood-pressure reading, without diagnosis of hypertension; I95.9 Hypotension, unspecified; Z28.310 Unvaccinated for COVID-19; Z79.899 Other long term (current) drug therapy; Z86.718 Personal history of other venous thrombosis and embolism; Z82.49 Family history of ischemic heart disease and other diseases of the circulatory system
CPT/HCPCS: 36415; 71045; 71275; 74174; 80048; 80053; 80061; 83735; 83880; 84484; 85025; 85379; 85610; 85730; 93005; 93306; 93458; 96365; 96366; 96375; 99291

== ENCOUNTER → 2022-04-16 | Outpatient (CLI) | payer MEDICARE ==
--- NOTE | 2022-04-16 23:29 | CT ---
EXAMINATION TYPE: CT chest wo con CT DLP: 415.70 mGycm, Automated exposure control for dose reduction was used. DATE OF EXAM: 04/16/2022 5:29 PM COMPARISON: CT 10/03/2021, radiograph 07/30/2021. CLINICAL INDICATION:Male, 66 years old with history of R91.8 OTHER NONSPECIFIC ABNORMAL FINDING OF DANISH NG F, abnormal findings of the lung TECHNIQUE: Multiple axial images were obtained through the chest. Sagittal and coronal reformats were created for review. Contrast used: none. Oral contrast used: none. FINDINGS: LUNGS/ PLEURA: Stable calcified granulomas in the right upper lobe posteriorly image 16 and 28 on series 3 Stable right upper lobe anterior pulmonary nodule measuring 7 mm image 31. Stable left upper lobe 4 mm nodule image 29. Stable left lower lobe 4 mm pulmonary nodule image 29 No evidence of focal consolidation, pneumothorax or pleural effusion. AIRWAY: Patent and unremarkable. HEART: Size within normal limits. MEDIASTINUM: No gross evidence of adenopathy. VASCULATURE: Ectatic ascending thoracic aorta measuring up to 4.6 cm. There is moderate to severe cor onary artery atherosclerosis. MUSCULOSKELETAL: No acute osseous abnormalities, multilevel right-sided remote rib fractures. Mild de generation changes with osteophyte formation throughout the spine SOFT TISSUES/LYMPH NODES: Unremarkable. LOWER NECK: No significant findings. UPPER ABDOMEN: No significant findings. IMPRESSION: 1. Stable pulmonary nodules some of which are calcified and likely representing calcified granulomas . Consider follow-up in one year to ensure stability. 2. Stable ascending thoracic aorta ectasia1 up to 4.6 cm.
== END | disposition home or self-care (01) ==
LOC: RADCTMAIN 16:59
PROVIDERS: ATTEND Internal Medicine
DX: R91.8 Other nonspecific abnormal finding of lung field (principal); I77.810 Thoracic aortic ectasia
CPT/HCPCS: 71250

== ENCOUNTER → 2023-04-15 | Day surgery (SDC) | payer MEDICARE ==
[~2023-04-15] MED LIST: ALPRAZolam 0.25 MG TAB PO PRN; ALPRAZolam 0.5 MG TAB PO PRN; ASPIRIN 325 MG TAB PO ONE; ASPIRIN 81 MG PO SCH; ATORVASTATIN 40 MG TAB PO SCH; CLOPIDOGREL 75 MG TAB PO SCH; EZETIMIBE 10 MG TAB PO SCH; HEPARIN SODIUM 1,000 UN/ML (10ML VL) ONE; HEPARIN SODIUM,PORCINE (1 ML) 2,500 UNIT in SODIUM CHLORIDE 0.9% 250 ML IRRIGATION PRN; HEPARIN SODIUM,PORCINE 10,000 UNIT in SODIUM CHLORIDE 0.9% 1,000 ML IRRIGATION PRN; IOPAMIDOL-370 100ML BTL INJ ONE; LIDOCAINE 1% INJ 10MG/ML (5 ML VIAL-PF) SQ ONE; METOPROLOL SUCCINATE (ER) 25 MG TAB.ER.24H PO SCH; MIDAZOLAM 2 MG/2 ML VIAL IVP ONE; MONTELUKAST 10 MG TAB PO SCH; NITROGLYCERIN 1000MCG/10ML SYRINGE INTRACORON ONE; NITROGLYCERIN SL TABS 0.4 MG TAB SUBLINGUAL PRN; RX INFO: IV CONTRAST WAS GIVEN 1 EACH MISC MISCELLANE PRN; SODIUM CHLORIDE 0.9% 1,000 ML IV SCH; SODIUM CHLORIDE 0.9% 1,000 ML in EMPTY BAG 1 BAG IV SCH; VALSARTAN 40 MG TAB PO SCH; VERAPAMIL 2.5 MG/ML 2 ML AMP ONE; VERAPAMIL SYRINGE (5 MG/10 ML) INTRAARTER ONE; fentaNYL (PF) 50 MCG/ML 2 ML AMP IVP ONE; fentaNYL (PF) 50 MCG/ML 2 ML AMP ONE
[2023-04-15 09:39] VITALS: RESP 16; TEMP 98.1
[2023-04-15 09:42] LABS: Basophils # (A) 0.1 k/uL (0-0.2); Basophils % (A) 1 %; Eosinophils # (A) 0.3 k/uL (0-0.7); Eosinophils % (A) 4 %; HCT 46.5 % (39.0-53.0); HGB 15.6 gm/dL (13.0-17.5); Lymphocytes % (A) 42 %; MCH 31.4 pg (25.0-35.0); MCHC 33.5 g/dL (31.0-37.0); MCV 93.9 fL (80.0-100.0); Mean Platelet Volume 7.8; Monocytes # (A) 0.5 k/uL (0-1.0); Monocytes % (A) 8 %; Neutrophils % (A) 43 %; Platelet Count 190 k/uL (150-450); RBC 4.96 m/uL (4.30-5.90); RDW 12.7 % (11.5-15.5)
[2023-04-15 10:01] LABS: African American GFR (CKD) >90 (>60 ml/min/1.73 sqM); Chloride 102 mmol/L (98-107); Non-African American GFR(CKD) >90 (>60 ml/min/1.73 sqM)
[2023-04-15 10:03] LABS: Anion Gap 11 mmol/L; Blood Urea Nitrogen 23 mg/dL (9-20); Calcium 9.4 mg/dL (8.4-10.2); Carbon Dioxide 27 mmol/L (22-30); Glucose 99 mg/dL (74-99); Potassium 4.8 mmol/L (3.5-5.1); Sodium 140 mmol/L (137-145)
[2023-04-15] MEDS: HEPARIN SODIUM 1,000 UN/ML (10ML VL) IV ONE ×2 (10:57→11:04)
--- NOTE | 2023-04-15 11:50 | P.CARDCATH ---
Date of Procedure: 04/15/23 Description of Procedure: Cardiac Catheterization: The patient is a 67-year-old male with a known history of CAD, hypertension and hyperlipidemia status post stenting in September 2021 who has been followed by Dr. Moe had a recent abnormal MPI. Recommendations were made regarding cardiac catheterization, the risks and the complications were discussed with the patient who is in full understanding and agreement. Procedure Description: Patient was brought to labor union business representative in fasting semi-sedated state after receiving Fentanyl and Benadryl achieiving moderate conscious sedated state. Using Xylocaine Anesthesia and modified Seldinger technique, a 6-Mosotho sheath was introduced in the right radial artery . Subsequently, selective coronary angiography was performed using a 5-Mosotho 3.5 bend Ryan catheter. Multiple views of the coronary artery including hemiaxial views were obtained. The 6-Mosotho pigtail catheter was used to cross the aortic valve and LVEDP was calculated. After removing the catheters a 6-Mosotho FR4 guiding catheter was introduced and after cannulating the right coronary ostium an Omni Doppler flow wire was positioned in the distal RCA. IFR was measured at an average of 0.97. Following that, catheter and sheath were removed. Hemostasis was obtained with deployment of vascular band . There was no immediate complication. Patient was returned to room in stable condition. Of note, the patient received a total of 6500 units of intravenous heparin as well as intra-arterial verapamil. Findings: Left main: This is a large size vessel, trifurcating into LAD, left circumflex and ramus intermedius, left main has no high-grade stenosis LAD: This is a large size vessel, reaching to the apex with a wraparound the apex segment giving rise to a large diagonal branch. The stented segment in the mid and proximal LAD is patent with mild intimal restenosis. The very distal left introducing artery at the apex has an 80-90% stenosis, the vessel beyond that is very small in caliber Left circumflex: This is a nondominant vessel, giving rise to one large obtuse marginal branch. The proximal left circumflex has 20-30% plaque, there is no evidence of high-grade stenosis RCA: This is a dominant vessel, bifurcating distally to PDA and PLV. The proximal and mid RCA is diffusely disease with plaques up to 2030%. The distal RCA has a 50-60% eccentric lesion, the rest of the vessel has no high-grade stenosis. Ramus intermedius: This is a large size vessel, the stented segment is patent with no significant in-stent restenosis Left Ventriculogram: Not performed Hemodynamics: There was no gradient across the aortic valve, LVEDP was 12-14 mmHg Conclusion: 1. Patent stent in the LAD with severe disease in the very distal LAD 2. Patent stent of the ramus intermedius 3. Intermediate lesion in the distal RCA with a non-hemodynamic significant IFR 4. Mild disease in the left circumflex Recommendations: I have recommended to continue medical therapy, the RCA lesion is not hemodynamically significant. He will continue aggressive coronary risks modifications. The findings and the recommendations were discussed with the patient and the family and they were in full understanding and agreement. Duration of sedation is 32 minutes.
[2023-04-15 18:38] VITALS: BP 121/69; PULSE 64
== END | disposition home or self-care (01) ==
LOC: CATHCVL 08:11
PROVIDERS: ATTEND Internal Medicine Interventional Cardiology
DX: I25.10 Atherosclerotic heart disease of native coronary artery without angina pectoris (principal); E78.5 Hyperlipidemia, unspecified; I10 Essential (primary) hypertension; Z79.02 Long term (current) use of antithrombotics/antiplatelets; Z79.899 Other long term (current) drug therapy
CPT/HCPCS: 93458; 93799; 80048; 85025; C1887; C1769 ×3; C1894; J2250; J2001; J3010; J1644; Q9967; J2305